=== PATIENT | male | born 1990 | race Two or more races ===

== ENCOUNTER → 2017-08-21 | Outpatient (CLI) | payer BC ==
--- NOTE | 2017-08-21 17:13 | REP ---
SUPINE ABDOMEN: 08/21/2017. Clinical history: Left upper quadrant pain. Comparison: CT abdomen pelvis 06/09/2016. Gas pattern is nonspecific. There is no evidence of obstruction, mass or free air. No abnormal calcifications over the renal fossae or expected course of the ureters. Bones intact. No visible mass. Impression: 1. Negative supine abdomen view. Signed by Dario Stinson MD 08/21/2017 08:38 P
== END ==
LOC: M LRY 16:26
PROVIDERS: ATTEND Nurse Practitioner Family
DX: R10.12 Left upper quadrant pain (principal)

== ENCOUNTER → 2022-07-07 | Outpatient (REF) | payer BC, OTHER ==
[2022-07-07 19:37] LABS: GC DNA AMPLIFICATION NEGATIVE (NEGATIVE)
== END ==
LOC: M LAB REF 16:26
PROVIDERS: ATTEND Student in an Organized Health Care Education/Training Program
DX: R30.0 Dysuria (principal)

== ENCOUNTER → 2025-01-23 | Outpatient (CLI) | payer BC | LOC: M WUC 10:02 | PROVIDERS: ATTEND Nurse Practitioner Family | DX: R05.9 Cough, unspecified (principal) ==